=== PATIENT | female | born 1960 | race African-American/Black ===

== ENCOUNTER 2021-06-16 09:28 | Inpatient (IN) | payer MEDICARE, MEDICAID ==
[~2021-06-16] VITALS: Ht 165.1 cm; Wt 118.8 kg
[~2021-06-16 09:28] MED LIST: ASPI-1497 MT; ATOR10TA69 MT; BENA20TA10 MT; BUME1TAB8 MT; FERR-63; GABA-532 MT
[2021-06-16] MEDS ORDERED: VANCOMYCIN 1G PREMIX 200 ML IV SCH (10:30)
[2021-06-16] MEDS ORDERED: PIPERACILLIN/TAZOBACTAM 3.375GM/50ML PREMIX IV NR (10:30)
[2021-06-16 10:51] LABS: CHLORIDE 102 mEq/L (98-107)
[2021-06-16 10:54] LABS: HEMATOCRIT. 31.3 % (36.0-48.0); HEMOGLOBIN. 9.6 g/dL (12.0-16.0); MEAN CORPUSCULAR HEMOGLOBIN 25.4 pg (28.0-32.0); MEAN CORPUSCULAR VOLUME 82.9 fL (81.0-99.0); MEAN PLATELET VOLUME 11.8 fl (7.4-10.4); PLATELET 175 x1000/uL (130-400); RED BLOOD CELL COUNT 3.78 mill/uL (4.2-5.4)
[2021-06-16 11:25] LABS: PLATELET ESTIMATE NORMAL
[2021-06-16] MEDS: ACETAMINOPHEN 325MG TABLET PO PRN (15:30)
[2021-06-16] MEDS ORDERED: POTASSIUM CHLORIDE 20MEQ TABLET SR PO NR (20:15)
[2021-06-16] MEDS ORDERED: TRAMADOL 50MG TABLET PO PRN (20:15)
[2021-06-16] MEDS ORDERED: NALOXONE HCL 0.4MG/ML VIAL IV PRN (20:30)
[2021-06-16] MEDS ORDERED: PIPERACILLIN/TAZ 3.375G PREMIX 50 ML IV NR (20:30)
[2021-06-16] MEDS ORDERED: WATER IV SCH (21:00)
[2021-06-16] MEDS ORDERED: VANCOMYCIN IV SCH (21:00)
[2021-06-16] MEDS: CARVEDILOL 6.25 MG TABLET PO SCH (21:00)
[2021-06-16] MEDS ORDERED: DEXT 5% IV SCH (21:00)
[2021-06-16] MEDS: ZOLPIDEM TARTRATE 5MG TABLET PO PRN (23:46)
[2021-06-16] MEDS: ATORVASTATIN CALCIUM 10MG TABLET PO SCH (23:46)
[2021-06-16] MEDS: BUMETANIDE 1MG TABLET PO SCH (23:48)
[2021-06-16] MEDS: ENOXAPARIN 30MG/0.3ML SYR SUBCUT SCH (23:48)
[2021-06-16] MEDS: GABAPENTIN 300MG CAPSULE PO SCH (23:50)
[2021-06-17] MEDS ORDERED: PIPERACILLIN/TAZOBACTAM 3.375 G in DEXTROSE 5% WATER 50 ML IV SCH (06:00)
[2021-06-17 08:20] LABS: CHLORIDE 101 mEq/L (98-107)
[2021-06-17 08:21] LABS: HEMATOCRIT. 28.8 % (36.0-48.0); HEMOGLOBIN. 8.9 g/dL (12.0-16.0); MEAN CORPUSCULAR HEMOGLOBIN 25.7 pg (28.0-32.0); MEAN CORPUSCULAR VOLUME 83.2 fL (81.0-99.0); MEAN PLATELET VOLUME 11.5 fl (7.4-10.4); PLATELET 169 x1000/uL (130-400); RED BLOOD CELL COUNT 3.46 mill/uL (4.2-5.4); RED CELL DISTRIBUTION WIDTH 16.2 % (11.6-14.6)
[2021-06-17 08:56] LABS: PLATELET ESTIMATE NORMAL
[2021-06-17] MEDS: CARVEDILOL 6.25 MG TABLET PO SCH ×2 (09:00→21:37)
[2021-06-17] MEDS: BENAZEPRIL 10MG TABLET PO SCH (09:00)
[2021-06-17] MEDS ORDERED: POTASSIUM CHLORIDE 20MEQ TABLET SR PO NR (11:15)
[2021-06-17] MEDS ORDERED: VANCOMYCIN 750 MG in DEXT 5% WATER 250 ML IV SCH (11:23)
[2021-06-17] MEDS: BUMETANIDE 1MG TABLET PO SCH ×2 (11:30→17:00)
[2021-06-17] MEDS: VANCOMYCIN 750 MG in DEXT 5% WATER 250 ML IV SCH ×3 (11:30→22:02)
[2021-06-17] MEDS: ASPIRIN 81MG TABLET PO SCH (11:30)
[2021-06-17] MEDS: GABAPENTIN 300MG CAPSULE PO SCH ×3 (11:31→17:00)
[2021-06-17] MEDS: ENOXAPARIN 30MG/0.3ML SYR SUBCUT SCH ×2 (11:31→21:38)
[2021-06-17] MEDS ORDERED: PIPERACILLIN/TAZ 3.375G PREMIX 50 ML IV SCH (14:00)
[2021-06-17] MEDS: ACETAMINOPHEN 325MG TABLET PO PRN (18:29)
[2021-06-17 19:43] LABS: CLARITY URINE CLEAR (CLEAR); COLOR URINE YELLOW (YELLOW); KETONES URINE NEGATIVE (NEGATIVE); LEUKOCYTE ESTERASE URINE TRACE (NEGATIVE); NITRITE URINE NEGATIVE (NEGATIVE); OCCULT BLOOD URINE NEGATIVE (NEGATIVE); PH URINE 6.5 (4.5-8.0); PROTEIN URINE TRACE (NEGATIVE); SPECIFIC GRAVITY URINE 1.014 (1.005-1.030)
[2021-06-17 19:58] LABS: *AMPHETAMINES SCREEN URINE NEGATIVE (NEGATIVE); *BARBITURATES SCREEN URINE NEGATIVE (NEGATIVE); *BENZODIAZEPINES SCREEN URINE NEGATIVE (NEGATIVE); *COCAINE SCREEN URINE NEGATIVE (NEGATIVE)
[2021-06-17 19:59] LABS: CANNABINOID URINE SCREEN NEGATIVE (NEGATIVE); METHADONE URINE SCREEN NEGATIVE (NEGATIVE); OPIATES URINE SCREEN NEGATIVE (NEGATIVE); PHENCYCLIDINE URINE SCREEN NEGATIVE (NEGATIVE)
[2021-06-17] MEDS: ATORVASTATIN CALCIUM 10MG TABLET PO SCH (21:37)
[2021-06-17] MEDS ORDERED: POTASSIUM CHLORIDE 20MEQ TABLET SR PO SCH (22:15)
[2021-06-17 22:48] VITALS: BP 122/83
[2021-06-17] MEDS ORDERED: ATORVASTATIN CALCIUM 10MG TABLET PO SCH (23:00)
[2021-06-18] MEDS: PIPERACILLIN/TAZOBACTAM 3.375G in DEXT 5% WATER 50ML IV SCH ×4 (00:14→21:35)
[2021-06-18] MEDS: ZOLPIDEM TARTRATE 5MG TABLET PO PRN ×2 (00:14→21:34)
[2021-06-18 04:00] VITALS: BP 145/80
[2021-06-18] MEDS: ACETAMINOPHEN 325MG TABLET PO PRN ×2 (04:21→21:36)
[2021-06-18 08:00] VITALS: BP 126/84
[2021-06-18 08:53] LABS: CHLORIDE 97 mEq/L (98-107)
[2021-06-18] MEDS: ENOXAPARIN 30MG/0.3ML SYR SUBCUT SCH ×2 (09:19→21:35)
[2021-06-18] MEDS: ASPIRIN 81MG TABLET PO SCH (09:19)
[2021-06-18] MEDS: BUMETANIDE 1MG TABLET PO SCH ×2 (09:20→16:20)
[2021-06-18] MEDS: ONDANSETRON HCL 4MG/2ML INJ IV PRN ×2 (09:20→16:20)
[2021-06-18] MEDS: CARVEDILOL 6.25 MG TABLET PO SCH ×2 (09:20→21:35)
[2021-06-18] MEDS: BENAZEPRIL 10MG TABLET PO SCH (09:20)
[2021-06-18] MEDS: GABAPENTIN 300MG CAPSULE PO SCH ×3 (09:21→16:20)
[2021-06-18 12:00] VITALS: BP 108/76
[2021-06-18] MEDS: VANCOMYCIN 1250MG in DEXTROSE 5% WATER 250ML IV SCH (12:26)
[2021-06-18 16:00] VITALS: BP 100/72
[2021-06-18 20:00] VITALS: BP 125/77
[2021-06-18] MEDS: ATORVASTATIN CALCIUM 10MG TABLET PO SCH (21:34)
[2021-06-18] MEDS: KETOCONAZOLE 2% CREAM 15GM TOP SCH (21:53)
[2021-06-19] VITALS (7 sets, daily range): BP systolic 102–133; BP diastolic 64–85
[2021-06-19] MEDS: VANCOMYCIN 1250MG in DEXTROSE 5% WATER 250ML IV SCH ×2 (01:05→10:56)
[2021-06-19] MEDS ORDERED: LORAZEPAM 2MG/ML CPJ IV NR (05:00)
[2021-06-19] MEDS ORDERED: METOCLOPRAMIDE HCL 10MG/2ML VIAL IV PRN (05:00)
[2021-06-19] MEDS: METOCLOPRAMIDE HCL 10MG/2ML VIAL IV PRN ×2 (05:21→21:00)
[2021-06-19] MEDS: PIPERACILLIN/TAZOBACTAM 3.375G in DEXT 5% WATER 50ML IV SCH ×2 (05:26→13:51)
[2021-06-19] MEDS: BUMETANIDE 1MG/4ML VIAL IV SCH ×2 (10:43→18:52)
[2021-06-19] MEDS: GABAPENTIN 300MG CAPSULE PO SCH ×3 (10:43→18:52)
[2021-06-19] MEDS: CARVEDILOL 6.25 MG TABLET PO SCH ×2 (10:44→20:53)
[2021-06-19] MEDS: BENAZEPRIL 10MG TABLET PO SCH (10:44)
[2021-06-19] MEDS: ASPIRIN 81MG TABLET PO SCH (10:44)
[2021-06-19] MEDS: KETOCONAZOLE 2% CREAM 15GM TOP SCH ×2 (10:52→20:53)
[2021-06-19] MEDS: ENOXAPARIN 30MG/0.3ML SYR SUBCUT SCH ×2 (10:52→20:53)
[2021-06-19] MEDS: ATORVASTATIN CALCIUM 10MG TABLET PO SCH (20:52)
[2021-06-19] MEDS: ONDANSETRON HCL 4MG/2ML INJ IV PRN (20:52)
[2021-06-19] MEDS ORDERED: MEROPENEM 1,000 MG in SODIUM CHLORIDE 0.9% 100 ML IV SCH (21:00)
[2021-06-19] MEDS: ZOLPIDEM TARTRATE 5MG TABLET PO PRN (23:09)
[2021-06-20] MEDS ORDERED: [UNRECOGNIZED DRUG - CODE] TP (05:04)
[2021-06-20] MEDS ORDERED: ALBU18HF2 IH (05:04)
[2021-06-20] MEDS ORDERED: TC025U80 TP (05:04)
[2021-06-20] MEDS ORDERED: HYDR-4622 TP (05:04)
[2021-06-20] MEDS ORDERED: FLUT1BLS3 INH (05:04)
== END 2021-06-19 23:30 | DRG 871 ==
LOC: ER 09:36 → MICUSO 13:42 → 8WST 06-17 21:25
PROVIDERS: ADMIT Internal Medicine; ATTEND Internal Medicine
PROC: 5A09357 Assistance with Respiratory Ventilation, Less than 24 Consecutive Hours, Continuous Positive Airway Pressure (ICD-10-PCS; principal; 2021-06-16)
PROC: 5A09357 Assistance with Respiratory Ventilation, Less than 24 Consecutive Hours, Continuous Positive Airway Pressure (ICD-10-PCS; 2021-06-17)
PROC: 5A09357 Assistance with Respiratory Ventilation, Less than 24 Consecutive Hours, Continuous Positive Airway Pressure (ICD-10-PCS; 2021-06-19)
DX: A41.9 Sepsis, unspecified organism (principal); I50.43 Acute on chronic combined systolic (congestive) and diastolic (congestive) heart failure; J96.20 Acute and chronic respiratory failure, unspecified whether with hypoxia or hypercapnia; L03.115 Cellulitis of right lower limb; E44.0 Moderate protein-calorie malnutrition; J44.1 Chronic obstructive pulmonary disease with (acute) exacerbation; L03.116 Cellulitis of left lower limb; L02.611 Cutaneous abscess of right foot; Z16.12 Extended spectrum beta lactamase (ESBL) resistance; Z68.41 Body mass index [BMI] 40.0-44.9, adult; I11.0 Hypertensive heart disease with heart failure; Z20.822 Contact with and (suspected) exposure to COVID-19; E66.01 Morbid (severe) obesity due to excess calories; E87.6 Hypokalemia; D64.9 Anemia, unspecified; E78.00 Pure hypercholesterolemia, unspecified; L97.519 Non-pressure chronic ulcer of other part of right foot with unspecified severity; M21.961 Unspecified acquired deformity of right lower leg; M15.9 Polyosteoarthritis, unspecified; R53.81 Other malaise; R26.9 Unspecified abnormalities of gait and mobility; B95.62 Methicillin resistant Staphylococcus aureus infection as the cause of diseases classified elsewhere; B96.4 Proteus (mirabilis) (morganii) as the cause of diseases classified elsewhere; Z86.16 Personal history of COVID-19; Z87.891 Personal history of nicotine dependence; Z99.81 Dependence on supplemental oxygen; Z79.899 Other long term (current) drug therapy; Z79.82 Long term (current) use of aspirin; Z82.49 Family history of ischemic heart disease and other diseases of the circulatory system; Z56.0 Unemployment, unspecified; Z88.2 Allergy status to sulfonamides; Z71.3 Dietary counseling and surveillance
CPT/HCPCS: 36415; 71045; 80048; 80053; 80202; 80305; 81003; 83880; 84484; 85025; 87070; 87077; 87186; 87426; 93005; 94660; 97162; 97166; 97530; 99285; C1893; J1650; J2060; J2185; J2405; J2543; J2765; J3370; J3490; J7050; J7060

== ENCOUNTER 2021-06-24 23:35 | Inpatient (IN) | payer MEDICARE, MEDICAID ==
[~2021-06-24] VITALS: Ht 165.1 cm; Wt 120.7 kg
[2021-06-24 23:10] VITALS: BP 91/71
[~2021-06-24 23:35] MED LIST changes: +ALBU18HF2 IH; +FLUT1BLS3 INH; +HYDR-4622 TP; +TC025U80 TP; +[UNRECOGNIZED DRUG - CODE] TP
[2021-06-25] VITALS (16 sets, daily range): BP systolic 87–128; BP diastolic 45–95
[2021-06-25] MEDS ORDERED: NALOXONE HCL 0.4 MG/ML 1ML VIAL IV PRN (03:45)
[2021-06-25] MEDS ORDERED: MAGNESIUM/ALUMINUM HYDROXIDE/SIMETHICONE 30ML UDC PO PRN (03:45)
[2021-06-25] MEDS ORDERED: NA PHOS,M-B/NA PHOS,DI-BA ENEMA 118ML PR PRN (03:45)
[2021-06-25] MEDS ORDERED: ACETAMINOPHEN WITH CODEINE 300/30MG TABLET PO PRN (03:45)
[2021-06-25] MEDS ORDERED: LACTULOSE 20G/30ML UDC PO PRN (03:45)
[2021-06-25] MEDS ORDERED: SENNOSIDES/DOCUSATE SOD 8.6/50MG TABLET PO PRN (03:45)
[2021-06-25] MEDS ORDERED: BISACODYL 10MG SUPP PR PRN (03:45)
[2021-06-25] MEDS ORDERED: METOCLOPRAMIDE HCL 10MG/2ML VIAL IV PRN (03:45)
[2021-06-25] MEDS ORDERED: ONDANSETRON HCL 4MG/2ML INJ IV PRN (03:45)
[2021-06-25] MEDS ORDERED: IPRATROPIUM/ALBUTEROL 0.5-3(2.5)MG/3ML NEB HHN PRN (03:45)
[2021-06-25] MEDS: MEROPENEM 1,000 MG in SODIUM CHLORIDE 0.9% 100 ML IV SCH ×3 (05:25→21:39)
[2021-06-25] MEDS ORDERED: VANCOMYCIN 1500MG in DEXTROSE 5% WATER 250ML IV SCH (06:00)
[2021-06-25] MEDS ORDERED: VANCOMYCIN 1500MG in DEXTROSE 5% WATER 250ML IV NR (08:00)
[2021-06-25] MEDS: ASPIRIN 81MG TABLET PO SCH (08:35)
[2021-06-25] MEDS: FUROSEMIDE 40MG/4ML VIAL IVP SCH ×2 (08:45→21:38)
[2021-06-25] MEDS: FLUOXETINE HCL 20MG CAPSULE PO SCH (08:46)
[2021-06-25] MEDS: PANTOPRAZOLE SODIUM 40 MG/VIAL IV SCH ×2 (08:46→21:39)
[2021-06-25] MEDS: GABAPENTIN 300MG CAPSULE PO SCH ×3 (08:46→17:14)
[2021-06-25] MEDS: MUPIROCIN 2% OINT 22GM NS SCH ×2 (08:49→21:39)
[2021-06-25] MEDS: HYDROCORTISONE 1% RECTAL CREAM 30GM PR SCH ×2 (08:50→17:00)
[2021-06-25] MEDS: KETOCONAZOLE 2% CREAM 15GM TOP SCH ×2 (08:58→21:40)
[2021-06-25] MEDS: CARVEDILOL 6.25 MG TABLET PO SCH ×2 (08:59→21:00)
[2021-06-25] MEDS: BENAZEPRIL 10MG TABLET PO SCH (09:00)
[2021-06-25] MEDS: TRIAMCINOLONE ACETONIDE 0.1% CREAM 15GM TOP SCH ×2 (09:00→21:41)
[2021-06-25] MEDS ORDERED: ENOXAPARIN 30MG/0.3ML SYR SUBCUT SCH (10:00)
[2021-06-25 10:50] LABS: CHLORIDE 93 mEq/L (98-107)
[2021-06-25 10:57] LABS: HEMOGLOBIN. 9.6 g/dL (12.0-16.0); MEAN CORPUSCULAR HEMOGLOBIN 26.5 pg (28.0-32.0); MEAN CORPUSCULAR VOLUME 82.3 fL (81.0-99.0); MEAN PLATELET VOLUME 10.6 fl (7.4-10.4); PLATELET 235 x1000/uL (130-400); RED BLOOD CELL COUNT 3.64 mill/uL (4.2-5.4); RED CELL DISTRIBUTION WIDTH 16.3 % (11.6-14.6)
[2021-06-25] MEDS ORDERED: NALOXONE HCL 0.4MG/ML VIAL IV PRN (11:15)
[2021-06-25] MEDS: DOCUSATE SODIUM 250MG CAPSULE PO SCH (11:31)
[2021-06-25] MEDS: ENOXAPARIN 120MG/0.8ML SYR SUBCUT SCH ×2 (11:32→21:41)
[2021-06-25] MEDS: DILTIAZEM HCL 60MG TABLET PO SCH ×2 (11:32→18:00)
[2021-06-25] MEDS: IPRATROPIUM/ALBUTEROL 0.5-3(2.5)MG/3ML NEB HHN SCH ×2 (13:45→21:45)
[2021-06-25] MEDS: ACETAMINOPHEN 325MG TABLET PO PRN ×2 (14:54→20:19)
[2021-06-25] MEDS: ATORVASTATIN CALCIUM 10MG TABLET PO SCH (21:39)
[2021-06-25 22:18] LABS: PLATELET ESTIMATE NORMAL
[2021-06-26] VITALS (12 sets, daily range): BP systolic 96–122; BP diastolic 53–87
[2021-06-26] MEDS: IPRATROPIUM/ALBUTEROL 0.5-3(2.5)MG/3ML NEB HHN SCH ×2 (01:32→06:00)
[2021-06-26] MEDS: VANCOMYCIN 1G PREMIX 200 ML IV SCH ×2 (03:32→17:22)
[2021-06-26] MEDS: MEROPENEM 1,000 MG in SODIUM CHLORIDE 0.9% 100 ML IV SCH ×3 (05:37→21:09)
[2021-06-26] MEDS: DILTIAZEM HCL 60MG TABLET PO SCH ×5 (06:00→23:48)
[2021-06-26 07:11] LABS: INR 1.2; PROTHROMBIN TIME 12.6 sec (9.6-11.0)
[2021-06-26 07:12] LABS: HEMATOCRIT. 27.3 % (36.0-48.0); HEMOGLOBIN. 8.8 g/dL (12.0-16.0); MEAN CORPUSCULAR HEMOGLOBIN 26.4 pg (28.0-32.0); MEAN CORPUSCULAR VOLUME 81.7 fL (81.0-99.0); PLATELET 217 x1000/uL (130-400); RED BLOOD CELL COUNT 3.34 mill/uL (4.2-5.4); RED CELL DISTRIBUTION WIDTH 16.1 % (11.6-14.6)
[2021-06-26 07:51] LABS: CHLORIDE 93 mEq/L (98-107)
[2021-06-26] MEDS: DOCUSATE SODIUM 250MG CAPSULE PO SCH (08:06)
[2021-06-26] MEDS: PANTOPRAZOLE SODIUM 40 MG/VIAL IV SCH ×2 (08:06→20:47)
[2021-06-26] MEDS: FLUOXETINE HCL 20MG CAPSULE PO SCH (08:06)
[2021-06-26] MEDS: GABAPENTIN 300MG CAPSULE PO SCH ×3 (08:06→16:01)
[2021-06-26] MEDS: CARVEDILOL 6.25 MG TABLET PO SCH ×2 (08:07→20:49)
[2021-06-26] MEDS: BENAZEPRIL 10MG TABLET PO SCH (08:07)
[2021-06-26] MEDS: FUROSEMIDE 40MG/4ML VIAL IVP SCH ×2 (08:08→20:48)
[2021-06-26] MEDS: ENOXAPARIN 120MG/0.8ML SYR SUBCUT SCH ×2 (08:08→20:48)
[2021-06-26] MEDS: ASPIRIN 81MG TABLET PO SCH (08:09)
[2021-06-26] MEDS: TRIAMCINOLONE ACETONIDE 0.1% CREAM 15GM TOP SCH ×2 (08:21→20:50)
[2021-06-26] MEDS: KETOCONAZOLE 2% CREAM 15GM TOP SCH (08:21)
[2021-06-26] MEDS: HYDROCORTISONE 1% RECTAL CREAM 30GM PR SCH ×2 (08:21→16:02)
[2021-06-26] MEDS: MUPIROCIN 2% OINT 22GM NS SCH ×2 (08:21→20:50)
[2021-06-26] MEDS: ACETAMINOPHEN 325MG TABLET PO PRN ×2 (11:45→23:43)
[2021-06-26] MEDS: TRELEGY ELLIPTA INHALER ORI SCH (16:01)
[2021-06-26 17:12] LABS: PLATELET ESTIMATE NORMAL
[2021-06-26] MEDS: SENNOSIDES/DOCUSATE SOD 8.6/50MG TABLET PO SCH (20:48)
[2021-06-26] MEDS: ATORVASTATIN CALCIUM 10MG TABLET PO SCH (20:48)
[2021-06-26] MEDS: IPRATROPIUM BROMIDE (0.02%) 0.5MG/2.5ML NEB HHN SCH ×2 (21:00→23:38)
[2021-06-26] MEDS: ZOLPIDEM TARTRATE 5MG TABLET PO PRN (23:42)
[2021-06-27] VITALS (10 sets, daily range): BP systolic 93–140; BP diastolic 56–89
[2021-06-27] MEDS: IPRATROPIUM BROMIDE (0.02%) 0.5MG/2.5ML NEB HHN SCH ×2 (04:43→08:00)
[2021-06-27] MEDS: MEROPENEM 1,000 MG in SODIUM CHLORIDE 0.9% 100 ML IV SCH ×2 (05:03→13:53)
[2021-06-27] MEDS: VANCOMYCIN 1G PREMIX 200 ML IV SCH (05:57)
[2021-06-27] MEDS: DILTIAZEM HCL 60MG TABLET PO SCH ×4 (05:59→23:15)
[2021-06-27 07:51] LABS: BASOPHILS % 0.5 % (0.0-2.0); EOSINOPHILS % 2.6 % (0.0-5.0); HEMOGLOBIN. 8.7 g/dL (12.0-16.0); LYMPHOCYTES % 11.2 % (20.0-50.0); MEAN CORPUSCULAR HEMOGLOBIN 26.6 pg (28.0-32.0); MEAN CORPUSCULAR VOLUME 82.8 fL (81.0-99.0); MEAN PLATELET VOLUME 10.6 fl (7.4-10.4); MONOCYTES % 6.3 % (2.0-8.0); NEUTROPHILS % 79.4 % (40.0-76.0); PLATELET 210 x1000/uL (130-400); RED BLOOD CELL COUNT 3.27 mill/uL (4.2-5.4); RED CELL DISTRIBUTION WIDTH 15.9 % (11.6-14.6)
[2021-06-27] MEDS: PANTOPRAZOLE SODIUM 40 MG/VIAL IV SCH (08:28)
[2021-06-27] MEDS: GABAPENTIN 300MG CAPSULE PO SCH ×3 (08:28→16:22)
[2021-06-27] MEDS: FUROSEMIDE 40MG/4ML VIAL IVP SCH (08:28)
[2021-06-27] MEDS: ASPIRIN 81MG TABLET PO SCH (08:28)
[2021-06-27] MEDS: FLUOXETINE HCL 20MG CAPSULE PO SCH (08:28)
[2021-06-27] MEDS: DOCUSATE SODIUM 250MG CAPSULE PO SCH (08:28)
[2021-06-27] MEDS: TRELEGY ELLIPTA INHALER ORI SCH (08:29)
[2021-06-27] MEDS: APIXABAN 5 MG TABLET PO SCH ×2 (08:29→16:23)
[2021-06-27] MEDS: MUPIROCIN 2% OINT 22GM TOP SCH (08:33)
[2021-06-27] MEDS: MUPIROCIN 2% OINT 22GM NS SCH ×2 (08:33→21:39)
[2021-06-27] MEDS: TRIAMCINOLONE ACETONIDE 0.1% CREAM 15GM TOP SCH ×2 (08:33→21:39)
[2021-06-27] MEDS: CARVEDILOL 6.25 MG TABLET PO SCH ×2 (09:00→21:39)
[2021-06-27 09:05] LABS: CHLORIDE 93 mEq/L (98-107)
[2021-06-27] MEDS: HYDROCORTISONE 1% RECTAL CREAM 30GM PR SCH ×2 (09:52→16:26)
[2021-06-27] MEDS ORDERED: FURO-151 MT (12:07)
[2021-06-27] MEDS ORDERED: APIX5TAB PO (12:07)
[2021-06-27] MEDS ORDERED: GABA-532 PO (12:07)
[2021-06-27] MEDS ORDERED: BENA10TA74 PO (12:07)
[2021-06-27] MEDS ORDERED: DILT240C91 MT (12:07)
[2021-06-27] MEDS ORDERED: CARV3.1242 MT (12:07)
[2021-06-27] MEDS: IPRATROPIUM/ALBUTEROL 0.5-3(2.5)MG/3ML NEB HHN SCH (15:02)
[2021-06-27] MEDS: ACETAMINOPHEN 325MG TABLET PO PRN (15:09)
[2021-06-27] MEDS: FUROSEMIDE 40MG TABLET PO SCH (16:23)
[2021-06-27] MEDS: SENNOSIDES/DOCUSATE SOD 8.6/50MG TABLET PO SCH (21:37)
[2021-06-27] MEDS: ATORVASTATIN CALCIUM 10MG TABLET PO SCH (21:37)
[2021-06-27] MEDS: PANTOPRAZOLE 40MG DR TABLET PO SCH (21:37)
[2021-06-27] MEDS: ZOLPIDEM TARTRATE 5MG TABLET PO PRN (23:11)
[2021-06-28] VITALS: BP 137/72
[2021-06-28 03:06] VITALS: BP 135/74
[2021-06-28 04:00] VITALS: BP 113/89
[2021-06-28] MEDS: DILTIAZEM HCL 60MG TABLET PO SCH (05:45)
[2021-06-28] MEDS: PANTOPRAZOLE 40MG DR TABLET PO SCH (05:58)
[2021-06-28] MEDS: FUROSEMIDE 40MG TABLET PO SCH (07:15)
[2021-06-28 08:00] VITALS: BP 142/70
[2021-06-28] MEDS: ASPIRIN 81MG TABLET PO SCH (08:38)
[2021-06-28] MEDS: CARVEDILOL 6.25 MG TABLET PO SCH (08:38)
[2021-06-28] MEDS: DOCUSATE SODIUM 250MG CAPSULE PO SCH (08:38)
[2021-06-28] MEDS: APIXABAN 5 MG TABLET PO SCH (08:38)
[2021-06-28] MEDS: FLUOXETINE HCL 20MG CAPSULE PO SCH (08:38)
[2021-06-28] MEDS: GABAPENTIN 300MG CAPSULE PO SCH (08:38)
[2021-06-28] MEDS: MUPIROCIN 2% OINT 22GM NS SCH (08:42)
[2021-06-28] MEDS: TRELEGY ELLIPTA INHALER ORI SCH (08:42)
[2021-06-28] MEDS: TRIAMCINOLONE ACETONIDE 0.1% CREAM 15GM TOP SCH (08:43)
[2021-06-28] MEDS: HYDROCORTISONE 1% RECTAL CREAM 30GM PR SCH (08:43)
[2021-06-28] MEDS: MUPIROCIN 2% OINT 22GM TOP SCH (08:43)
== END 2021-06-28 09:25 | disposition home health service (06) | DRG 871 ==
LOC: 3WST 23:35
PROVIDERS: ADMIT Internal Medicine; ATTEND Internal Medicine
PROC: 5A09357 Assistance with Respiratory Ventilation, Less than 24 Consecutive Hours, Continuous Positive Airway Pressure (ICD-10-PCS; principal; 2021-06-25)
PROC: 5A09357 Assistance with Respiratory Ventilation, Less than 24 Consecutive Hours, Continuous Positive Airway Pressure (ICD-10-PCS; 2021-06-26)
DX: A41.9 Sepsis, unspecified organism (principal); I50.43 Acute on chronic combined systolic (congestive) and diastolic (congestive) heart failure; J96.20 Acute and chronic respiratory failure, unspecified whether with hypoxia or hypercapnia; L03.116 Cellulitis of left lower limb; L02.611 Cutaneous abscess of right foot; L02.31 Cutaneous abscess of buttock; E87.1 Hypo-osmolality and hyponatremia; L03.115 Cellulitis of right lower limb; I48.92 Unspecified atrial flutter; J44.1 Chronic obstructive pulmonary disease with (acute) exacerbation; J84.9 Interstitial pulmonary disease, unspecified; L02.212 Cutaneous abscess of back [any part, except buttock and flank]; Z68.41 Body mass index [BMI] 40.0-44.9, adult; I42.0 Dilated cardiomyopathy; I11.0 Hypertensive heart disease with heart failure; E78.5 Hyperlipidemia, unspecified; I27.20 Pulmonary hypertension, unspecified; B95.62 Methicillin resistant Staphylococcus aureus infection as the cause of diseases classified elsewhere; K59.00 Constipation, unspecified; E87.8 Other disorders of electrolyte and fluid balance, not elsewhere classified; K21.9 Gastro-esophageal reflux disease without esophagitis; B96.4 Proteus (mirabilis) (morganii) as the cause of diseases classified elsewhere; D50.9 Iron deficiency anemia, unspecified; E66.01 Morbid (severe) obesity due to excess calories; E78.00 Pure hypercholesterolemia, unspecified; R26.9 Unspecified abnormalities of gait and mobility; R53.81 Other malaise; E87.6 Hypokalemia; F41.9 Anxiety disorder, unspecified; I08.1 Rheumatic disorders of both mitral and tricuspid valves; I48.0 Paroxysmal atrial fibrillation; L02.32 Furuncle of buttock; L97.519 Non-pressure chronic ulcer of other part of right foot with unspecified severity; M19.90 Unspecified osteoarthritis, unspecified site; M21.961 Unspecified acquired deformity of right lower leg; Z79.01 Long term (current) use of anticoagulants; Z79.82 Long term (current) use of aspirin; Z82.49 Family history of ischemic heart disease and other diseases of the circulatory system; Z87.891 Personal history of nicotine dependence; Z99.81 Dependence on supplemental oxygen; Z79.899 Other long term (current) drug therapy; Z88.2 Allergy status to sulfonamides
CPT/HCPCS: 36415; 71045; 80048; 80202; 83036; 83735; 85025; 93005; 94640; 94660; C9113; J1650; J1940; J2185; J3370; J7050; J7060